=== PATIENT | male | born 1960 | race Two or more races ===

== ENCOUNTER 2018-02-12 12:14 | Emergency (ER) | payer OTHER ==
[~2018-02-12] VITALS: Ht 172.7 cm; Wt 93.4 kg
[~2018-02-12 12:14] MED LIST: ASPI-231 PO; LOSA50TA6 PO; METF-370 PO; METO25TA62 PO; SIMV-8 PO; TAMS0.4C36 PO
[2018-02-12 14:03] VITALS: BP 169/90
== END 2018-02-12 14:07 | disposition home or self-care (01) ==
LOC: ER 12:14
DX: S22.42XA Multiple fractures of ribs, left side, initial encounter for closed fracture (principal); E78.5 Hyperlipidemia, unspecified; I10 Essential (primary) hypertension; Z79.82 Long term (current) use of aspirin; E66.01 Morbid (severe) obesity due to excess calories; Z68.31 Body mass index [BMI] 31.0-31.9, adult; V43.52XA Car driver injured in collision with other type car in traffic accident, initial encounter; Y93.89 Activity, other specified; Y92.89 Other specified places as the place of occurrence of the external cause; Y99.8 Other external cause status
CPT/HCPCS: 71101